=== PATIENT | male | born 1940 | race Caucasian/White ===

== ENCOUNTER 2017-03-12 15:19 | Emergency (ER) | payer MEDICARE ==
[~2017-03-12] VITALS: Ht 180.3 cm; Wt 104.0 kg
[~2017-03-12 15:19] MED LIST: ASPIRIN81 MG PO; CELEBREX200 MG OR; CENTRU2 PO; CIPROFLOXACN500 MG PO; COUMADIN2.5 MG PO; COUMADIN5 MG OR; CRESTOR5 MG OR; DIOVAN HC1 OR; DIOVAN HCT160 MG/25 OR; DIOVAN160 MG PO; JANUMET1 TAB PO; MELATONIN5 MG PO; METFORMIN500 MG OR; METOPROL TAR100 MG PO; METOPROLOL50 MG OR; NEXIUM40 M1 OR; SEA-OMEGA500 MG PO; TRICOR145 MG OR; TRICOR145 MG PO; VERAPAMIL360 MG OR; WARFARIN5 MG PO; XARELTO15 MG PO; ZANTAC 150 PO
[2017-03-12] MEDS ORDERED: OMEPRAZOLE10 MG PO (15:54)
[2017-03-12] MEDS ORDERED: METFORMIN500 MG PO (15:55)
[2017-03-12] MEDS ORDERED: FUROSEMIDE20 MG PO (15:56)
[2017-03-12] MEDS ORDERED: AMLODIPINE5 MG PO (15:56)
[2017-03-12] MEDS ORDERED: KEFLEX500 MG PO (16:12)
[2017-03-12 16:20] VITALS: BP 124/83
[2017-03-12] MEDS ORDERED: XARELTO20 MG PO (16:26)
[2017-03-12] MEDS ORDERED: LEVEMIR FL100 UNIT/M SC (16:28)
[2017-03-12] MEDS ORDERED: PRAVASTATIN SOD20 MG PO (16:28)
[2017-03-12] MEDS ORDERED: DIOVAN HC2 PO (16:28)
[2017-03-12] MEDS ORDERED: FENOFIBRATE145 MG PO (16:29)
[2017-03-12] MEDS ORDERED: PRILOSEC20 MG PO (16:30)
[2017-03-12] MEDS ORDERED: MULTI VIT PO (16:31)
[2017-03-12] MEDS ORDERED: FISH OIL1000 MG PO (16:31)
== END 2017-03-12 16:20 | disposition home or self-care (01) ==
LOC: ED 15:19
DX: S80.862A Insect bite (nonvenomous), left lower leg, initial encounter (principal); S80.861A Insect bite (nonvenomous), right lower leg, initial encounter; I48.91 Unspecified atrial fibrillation; I10 Essential (primary) hypertension; M19.90 Unspecified osteoarthritis, unspecified site; E11.9 Type 2 diabetes mellitus without complications; Y93.89 Activity, other specified; Y92.009 Unspecified place in unspecified non-institutional (private) residence as the place of occurrence of the external cause; W57.XXXA Bitten or stung by nonvenomous insect and other nonvenomous arthropods, initial encounter; Z86.73 Personal history of transient ischemic attack (TIA), and cerebral infarction without residual deficits

== ENCOUNTER → 2018-08-10 | Outpatient (REF) | payer MEDICARE ==
[~2018-08-10] MED LIST changes: +AMLODIPINE5 MG PO; +DIOVAN HC2 PO; +FENOFIBRATE145 MG PO; +FISH OIL1000 MG PO; +FUROSEMIDE20 MG PO; +KEFLEX500 MG PO; +LEVEMIR FL100 UNIT/M SC; +METFORMIN500 MG PO; +MULTI VIT PO; +OMEPRAZOLE10 MG PO; +PRAVASTATIN SOD20 MG PO; +PRILOSEC20 MG PO; +XARELTO20 MG PO
[2018-08-10 08:11] LABS: HEMATOCRIT 47.7 % (39.0-50.0); HEMOGLOBIN 15.9 g/dl (14.0-18.0); MEAN CORPUSCULAR HGB CONC 33.3 g/L CALC (32.0-36.0); RED BLOOD COUNT 4.97 mill/uL (4.70-6.10); RED CELL DISTRI WIDTH 13.8 % (11.5-15.5)
[2018-08-10 08:34] LABS: ALBUMIN 4.3 g/dL (3.2-5.0); ALKALINE PHOSPHATASE 40 u/l (38-126); ANION GAP 16 (6-22 (CALC)); BILIRUBIN, TOTAL 0.8 mg/dL (0.0-1.4); BUN 23 mg/dL (8-23); BUN/CREATININE RATIO 19 (12-20 (CALC)); CALCULATED LDLCHOLESTEROL 76 mg/dL (62-129 (CALC)); CARBON DIOXIDE 27 mmol/l (22-30); CHLORIDE 103 mmol/l (95-108); CHOLESTEROL HDL RATIO 4.5 (<4.4 (CALC)); CREATININE 1.2 mg/dL (0.7-1.3); GFR 59 ML/MIN (>=60 (CALC)); GFR FOR AFR.AMER. > 60 ML/MIN (>=60 (CALC)); HDL CHOLESTEROL 30 mg/dL (>=40); POTASSIUM 3.5 mmol/l (3.5-5.1); SGOT/AST 34 u/l (19-48); SODIUM 143 mmol/l (137-146); TOTAL CHOLESTEROL 134 mg/dl (0-199); TOTAL TRIGLYCERIDES 139 mg/dl (30-149); VLDL CHOLESTROL 28 mg/dl (0-38 (CALC))
== END | disposition home or self-care (01) ==
LOC: LAB 07:13
PROVIDERS: ATTEND Nurse Practitioner
DX: E11.319 Type 2 diabetes mellitus with unspecified diabetic retinopathy without macular edema (principal); E78.49 Other hyperlipidemia; I10 Essential (primary) hypertension

== ENCOUNTER 2019-08-21 13:26 | Observation (INO) | payer MEDICARE ==
[~2019-08-21] VITALS: Ht 180.3 cm; Wt 109.4 kg
--- NOTE | 2019-08-21 13:27 | NUR ---
PT IMMEDIATELY TO ROOM FOE BEDSIDE TRIAGE VIA WC IN NO DISTRESS
--- NOTE | 2019-08-21 14:06 | NUR ---
PT DOES NOT APPEAR TO BE IN ANY DISTRESS AT THIS TIME
[2019-08-21 14:14] LABS: HEMATOCRIT 45.8 % (39.0-50.0); HEMOGLOBIN 15.3 g/dl (14.0-18.0); IMMATURE GRANULOCYTES 0.3 % (0.0-5.0); MEAN CELL VOLUME 93.9 fL CALC (80.0-100.0); MEAN CORPUSCULAR HGB 31.4 pG CALC (26.0-32.0); MEAN CORPUSCULAR HGB CONC 33.4 g/L CALC (32.0-36.0); NEUT# 11.93 thou/uL (1.82-7.42); RED BLOOD COUNT 4.88 mill/uL (4.70-6.10); RED CELL DISTRI WIDTH 14.7 % (11.5-15.5)
[2019-08-21 14:26] LABS: INTERNATIONAL NORMALIZED RATIO 1.2 RATIO (0.7-1.3); PROTHROMBIN TIME 12.9 SECONDS (9.0-12.5)
[2019-08-21 14:28] LABS: ALBUMIN 4.4 g/dL (3.2-5.0); ALKALINE PHOSPHATASE 58 u/l (38-126); ANION GAP 17 (6-22 (CALC)); BUN 19 mg/dL (8-23); BUN/CREATININE RATIO 21 (12-20 (CALC)); CARBON DIOXIDE 23 mmol/l (22-30); CHLORIDE 103 mmol/l (95-108); CREATININE 0.9 mg/dL (0.7-1.3); GFR > 60 ML/MIN (>=60 (CALC)); GFR FOR AFR.AMER. > 60 ML/MIN (>=60 (CALC)); POTASSIUM 3.9 mmol/l (3.5-5.1); SGOT/AST 33 u/l (19-48); SODIUM 138 mmol/l (137-146); TOTAL PROTEIN 7.6 g/dL (6.3-8.2)
--- NOTE | 2019-08-21 15:57 | NUR ---
2ND LACTIC DRAWN. PT BACK FROM XRAY RESTING ON STRETCHER. DENIES ANY PAIN OR SOB AT THIS TIME
[2019-08-21 16:18] LABS: URINE BILIRUBIN - DIPSTICK NEGATIVE (NEGATIVE); URINE BLOOD DIPSTICK NEGATIVE (NEGATIVE); URINE COLOR YELLOW; URINE GLUCOSE - DIPSTICK NEGATIVE (NEGATIVE); URINE KETONE NEGATIVE (NEGATIVE); URINE LEUK ESTERASE NEGATIVE (NEGATIVE); URINE NITRITE - DIPSTICK NEGATIVE (Negative); URINE PROTEIN - DIPSTICK 100 mg/dL (NEG-TRACE)
[2019-08-21 16:20] LABS: URINE EPITHELIAL CELLS FEW EPI/hpf (0-FEW); URINE MUCUS MANY hpf (NONE-FEW)
--- NOTE | 2019-08-21 17:49 | NUR ---
PT RESTING QUIETLY, ADVISED OF ADMISSION, WAITING ON ROOM AVAILABLE. PT WATCHING TV, NO DISTRESS AT THIS TIME. TALKING AND LAUGHING WITH STAFF
--- NOTE | 2019-08-21 18:40 | NUR ---
PT UP TO BATHROOM, PER W/C, STATES PREFERS TO SIT UP IN W/C INSTEAD OF IN BED. FLUIDS AND ANTIBIOTICS CONTINUE TO INFUSE. PT DENIES ANY SOB AT THIS TIME. WATCHING TV. VSS
--- NOTE | 2019-08-21 19:47 | NUR ---
REPORT GIVEN TO FLOOR, AND PT TAKEN TO FLOOR PER W/C AND TELEMENTRY.
[2019-08-21 19:50] VITALS: BP 151/81
--- NOTE | 2019-08-21 20:00 | NUR ---
PT. ARRIVED TO THE FLOOR VIA STRETCHER ACCOMPANIED @1945. PT. A/A/O AND ORIENTED TO CALL LIGHT, ROOM, AND POC; VERBALIZES UNDERSTANDING. ADMISSION ASSESSMENT COMPLETED. TELEMETRY IN PLACE. DENIES PAIN. LAST BM REPORTED 08/19/19 AND OFFERED TO CALL FOR LAXATIVE AND PT. DECLINES WANTING ONE. PT. REPORTS HE USUALLY WEARS CPAP AT NIGHT, BUT DID NOT BRING HIS FROM HOME; APPLIED O2 FOR NIGHT TIME USE. ENCOURAGED TO CALL FOR ANY NEEDS. CALL LIGHT IS IN REACH.
[2019-08-22] VITALS: BP 140/80
--- NOTE | 2019-08-22 | NUR ---
IV SITE FOUND OUT AND REMOVED WITH CATHETER TIP INTACT. NEW IV STARTED TO RIGHT HAND #22 GAUGE X2 ATTEMPTS.PT. TOLERATED WELL. DENIES FURTHER NEEDS. CALL LIGHT IS IN REACH.
--- NOTE | 2019-08-22 02:52 | NUR ---
RESTING IN BED WITH EYES CLOSED; RESP. EVEN AND UNLABORED. CALL LIGHT IS IN REACH. WILL CONTINUE TO MONITOR.
[2019-08-22 03:40] VITALS: BP 146/92
--- NOTE | 2019-08-22 03:40 | NUR ---
PT. FOUND INCONTINENT OF URINE AND URINE ON FLOOR; ASSISTED PT. TO SHOWER AND LINENS CHANGED. VS OBTAINED. NO DISTRESS NOTED; DENIES NEEDS. CALL LIGHT IS IN REACH. WILL CONTINUE TO MONITOR.
--- NOTE | 2019-08-22 05:37 | NUR ---
PT. DRANK A PRUNE JUICE AND ASSISTED TO THE BATHROOM TO ATTEMPT TO HAVE A BM. PT. INSTRUCTED TO PULL BATHROOM CORD WHEN FINISHED AND VERBALIZES UNDERSTANDING.
[2019-08-22 05:49] LABS: HEMATOCRIT 44.5 % (39.0-50.0); HEMOGLOBIN 14.6 g/dl (14.0-18.0); IMMATURE GRANULOCYTES 0.3 % (0.0-5.0); MEAN CELL VOLUME 95.1 fL CALC (80.0-100.0); MEAN CORPUSCULAR HGB 31.2 pG CALC (26.0-32.0); MEAN CORPUSCULAR HGB CONC 32.8 g/L CALC (32.0-36.0); NEUT# 6.56 thou/uL (1.82-7.42); RED BLOOD COUNT 4.68 mill/uL (4.70-6.10); RED CELL DISTRI WIDTH 14.9 % (11.5-15.5)
[2019-08-22 06:19] LABS: ANION GAP 14 (6-22 (CALC)); BUN 14 mg/dL (8-23); BUN/CREATININE RATIO 19 (12-20 (CALC)); CARBON DIOXIDE 22 mmol/l (22-30); CHLORIDE 105 mmol/l (95-108); CREATININE 0.7 mg/dL (0.7-1.3); GFR > 60 ML/MIN (>=60 (CALC)); GFR FOR AFR.AMER. > 60 ML/MIN (>=60 (CALC)); POTASSIUM 3.4 mmol/l (3.5-5.1); SODIUM 138 mmol/l (137-146)
[2019-08-22 08:02] VITALS: BP 151/96
--- NOTE | 2019-08-22 08:02 | NUR ---
PT SITTING ON THE SIDE OF THE BED EATING BREAKFAST WITH DAUGHTER AT BEDSIDE. A&O X3. NO DISTRESS NOTED. PT STATES THAT HE WANTS TO GO HOME TODAY AND THAT HE IS FEELING A LOT BETTER. ASSISTED PT TO THE BATHROON, STEADY GAIT OBSERVED. ASSISTED PT BACK IN BED. PER PT HE ONLY USES O2 WHEN HE IS LAYING DOWN FLAT BECAUSE HE USES A CPAP MACHINE AT HOME BUT DID NOT BRING IT WITH HIM. ASSESSMENT COMPLETED. DISCUSSED POC. CALL LIGHT IN REACH. CONTINUE TO MONITOR.
--- NOTE | 2019-08-22 10:29 | NUR ---
DR PARHAM AT BEDSIDE DISCUSSING POC
--- NOTE | 2019-08-22 10:30 | NUR ---
PT HAD A LARGE LOOSE BM, PT UNABLE TO CALL FOR ASSISTANCE BEFORE HAVING THE URGE TO GO. ASSISTED PT INTO THE SHOWER. NO OTHER NEEDS AT THIS TIME.
[2019-08-22] MEDS ORDERED: AMOX/K CLAV875 M1 PO (10:39)
[2019-08-22 12:07] VITALS: BP 141/90
--- NOTE | 2019-08-22 12:44 | NUR ---
Discharge instructions given. Patient verbalizes understanding of same. Discharged in stable condition via Ambulatory to Home with family. All belongings sent with pt. IV intact upon removal
[2019-08-23] MEDS ORDERED: LEVEMIR100 UNIT/M SC (19:17)
== END 2019-08-22 12:44 | disposition home or self-care (01) ==
LOC: ED 13:26 → ED-I 17:40 → ED 17:50 → MS2 17:51
PROVIDERS: ADMIT Internal Medicine; ATTEND Internal Medicine
DX: E87.2 Acidosis (principal); R06.03 Acute respiratory distress; J32.9 Chronic sinusitis, unspecified; J40 Bronchitis, not specified as acute or chronic; I48.91 Unspecified atrial fibrillation; I10 Essential (primary) hypertension; E11.9 Type 2 diabetes mellitus without complications; G47.33 Obstructive sleep apnea (adult) (pediatric); Z79.01 Long term (current) use of anticoagulants; Z79.84 Long term (current) use of oral hypoglycemic drugs
CPT/HCPCS: G0378; Q9967

== ENCOUNTER 2019-08-23 17:12 | Inpatient (IN) | payer MEDICARE ==
[~2019-08-23] VITALS: Ht 180.3 cm; Wt 108.9 kg
[~2019-08-23 17:12] MED LIST changes: +AMOX/K CLAV875 M1 PO
--- NOTE | 2019-08-23 17:22 | NUR ---
PT TO ROOM VIA EMS
--- NOTE | 2019-08-23 17:30 | NUR ---
RECTAL TEMP COMPLETED AND IS 104.1 AT THIS TIME. PT LETHARGIC OPENS EYES TO VERBAL STIMULI. PT DENIES ANY PAIN OR SOB AT THIS TIME. RR 24, PT AFIB ON THE MONITOR AT 90-110'S. BILATERAL LS CLEAR WITH CRACKLES TO BILATERAL LOWER LOBES. PT REPORTS FEELING WORSE OF THE PAST SEVERAL DAYS. PT AWARE OF PLAN OF CARE AND WAIT TIME. CALL CORBIN WITHIN REACH.
[2019-08-23 17:42] LABS: URINE BILIRUBIN - DIPSTICK NEGATIVE (NEGATIVE); URINE BLOOD DIPSTICK MODERATE (NEGATIVE); URINE COLOR YELLOW; URINE GLUCOSE - DIPSTICK NEGATIVE (NEGATIVE); URINE KETONE NEGATIVE (NEGATIVE); URINE LEUK ESTERASE NEGATIVE (NEGATIVE); URINE NITRITE - DIPSTICK NEGATIVE (Negative); URINE PROTEIN - DIPSTICK >=300 mg/dL (NEG-TRACE); URINE SPECIFIC GRAVITY 1.025; URINE UROBILINOGEN - DIPSTICK 0.2 E.U./dL (0.2)
--- NOTE | 2019-08-23 17:50 | NUR ---
SON AT BEDSIDE. BOTH UPDATED ON PLAN OF CARE AND WAIT TIME. CALL EMERALD ESPOSITO.
[2019-08-23 17:56] LABS: ALBUMIN 3.9 g/dL (3.2-5.0); ALKALINE PHOSPHATASE 49 u/l (38-126); ANION GAP 13 (6-22 (CALC)); BILIRUBIN, TOTAL 1.1 mg/dL (0.0-1.4); BUN 18 mg/dL (8-23); BUN/CREATININE RATIO 18 (12-20 (CALC)); CARBON DIOXIDE 24 mmol/l (22-30); CHLORIDE 101 mmol/l (95-108); GFR > 60 ML/MIN (>=60 (CALC)); GFR FOR AFR.AMER. > 60 ML/MIN (>=60 (CALC)); LIPASE 64 u/l (23-300); POTASSIUM 3.6 mmol/l (3.5-5.1); SGOT/AST 38 u/l (19-48); SODIUM 134 mmol/l (137-146); TOTAL PROTEIN 6.9 g/dL (6.3-8.2)
[2019-08-23 18:00] LABS: HEMATOCRIT 43.8 % (39.0-50.0); HEMOGLOBIN 14.4 g/dl (14.0-18.0); IMMATURE GRANULOCYTES 0.2 % (0.0-5.0); MEAN CELL VOLUME 94.4 fL CALC (80.0-100.0); MEAN CORPUSCULAR HGB CONC 32.9 g/L CALC (32.0-36.0); NEUT# 9.34 thou/uL (1.82-7.42); RED BLOOD COUNT 4.64 mill/uL (4.70-6.10); RED CELL DISTRI WIDTH 14.9 % (11.5-15.5)
[2019-08-23 18:12] LABS: URINE SQUAMOUS EPITHELIAL CELL FEW EPI/hpf (0-FEW)
[2019-08-23 18:13] LABS: URINE AMORPH SEDIMENT MODERATE hpf (NONE-FER)
--- NOTE | 2019-08-23 18:20 | NUR ---
MD AT BEDSIDE TO DISCUSS RESULTS AND NEED FOR ADMISSION.
--- NOTE | 2019-08-23 19:00 | NUR ---
PT RESTING COMFORTABLY IN STRETCHER AND DENIES ANY NEEDS AT THIS TIME. PT AWARE OF PLAN FOR ADMISSION AND WAIT TIME. [facility].
--- NOTE | 2019-08-23 19:16 | NUR ---
REPORT CALLED TO VINICIUS WATTS TO ICU.
[2019-08-23] MEDS ORDERED: LEVEMIR100 UNIT/M SC (19:17)
--- NOTE | 2019-08-23 19:27 | NUR ---
IVF/ANTIBIOTICS COMPLETED. PT RESTING. PREPARED FOR TRANSPORT. MASK APPLIED. TO FLOOR WITH PORTABLE MONITOR/O2 @ 2 LPM NC/MASK. SON AT BEDSIDE.
[2019-08-23 19:30] VITALS: BP 127/75
--- NOTE | 2019-08-23 19:30 | NUR ---
79 yr old white male admitted as med surg tele overflow to icu5 per stretcher from er. transferred x3 to bed. bed weight obtained. o2 cont per nc. ui ux web developer shows a fib hr 103. #20 lac & rt wrist saline locks. history obtained from pt, er records & old chart as he was d/c'd yesterday from this facility. oriented to room. fall, droplet & contact precautions initiated. son @ bedside.
[2019-08-24 00:01] VITALS: BP 140/80
--- NOTE | 2019-08-24 00:01 | NUR ---
eyes closed. no distress. campus monitor shows a fib hr 106.
--- NOTE | 2019-08-24 04:00 | NUR ---
monitor and storage bin tender shows a fib hr 100.
--- NOTE | 2019-08-24 05:57 | NUR ---
has been incont in bed & on floor x3 this shift.
--- NOTE | 2019-08-24 07:30 | NUR ---
REPORT RECEIVED FROM VINICIUS WATTS. PT RESTING IN BED SUPINE CROOKED AND INCONTINENT OF LARGE AMOUNT OF URINE. PT HAVING DIFFICULY MANIPULATING HIMSELF IN BED TO REACH CALL LIGHT EVEN WHEN IT IS RIGHT NEXT TO HIM. PT ASSITED TO BSC FOR ASSISTED BATH, LINEN CHANGE, AND ORAL CARE. ACCU CHECK 120. ASSESSMENT COMPLETED. PT ALERT AND ORIENTED X 3. DENIES PAIN. RESPIRATIONS EVEN AND UNLABORED ON OXYGEN 2L VIA NC. VSS. LUNGS ARE CLEAR; MILD SOB WITH EXERTION. HEART RATE IRREGULAR. PLAN OF CARE REVIEWED. PT ENCOURAGED TO VERBALIZE CONCERNS. STATES UNDERSTANDING. SAFETY MEAURES IN PLACE. CALL LIGHT WITHIN REACH.
[2019-08-24 08:00] VITALS: BP 121/82
--- NOTE | 2019-08-24 08:21 | NUR ---
PT SITTING UP IN CHAIR FOR BREAKFAST; ATE 75%. WATCHING TV WITH NO REQUESTS OR CONCERNS. ON CONTACT AND DROPLET PRECAUTIONS FOR FLU AND HX OF MRSA. IV SITES APPEAR HEALTHY AND FLUSH. AFIB ON MARKETING PRODUCTION MANAGER WITH HEART RATE 90S-110S.
--- NOTE | 2019-08-24 09:22 | NUR ---
UP TO BSC TO VOID 125 ML OF CLEAR FELIPE URINE WITH SOME INCONTINENCE UPON STANDING. ONE PERSON ASSIST; PT WEAK AND UNSTEADY. RESPOSITIONED INTO BED; SEMI FOWLERS. C/O BEING COLD; TEMP 97.9. PT HAS TREMORS THAT HE REPORTS ARE FROM A PREVIOUS STROKE; UNRELATED TO BEING COLD. SKIN IS HOT AND DRY.
--- NOTE | 2019-08-24 10:15 | NUR ---
DR. FARIAS AT BEDSIDE. DAUGHTER ALSO AT BEDSIDE. ALL AGREE PT TO STAY ANOTHER NIGHT; WITH BEGINNING ALZHEIMERS CAN NOT CARE FOR HIM AT CURRENTLY ACTIVITY LEVEL. PT AND OT ORDERED.
--- NOTE | 2019-08-24 11:26 | NUR ---
SMALL URINARY INCONTINENCE; PT ASSISTED TO BSC; WAS UNABLE TO VOID ANY MORE. NOW SITTING UP IN BEDSIDE CHAIR WITH EYES CLOSED. OXYGEN DECREASED TO 1L; SPO2 95%.
[2019-08-24 12:21] VITALS: BP 154/80
--- NOTE | 2019-08-24 13:35 | NUR ---
PT AT BEDSIDE FOR EVAL.
--- NOTE | 2019-08-24 13:48 | NUR ---
SON AT BEDSIDE; ASSITED PT TO BSC AND BACK TO BED. OXYGEN REMOVED; SPO2 97-98% ON ROOM AIR. NO REQUESTS OR CONCERNS FROM PT. SAFETY MEASURES IN PLACE. CALL LIGHT WITHIN REACH.
[2019-08-24 16:00] VITALS: BP 149/97
--- NOTE | 2019-08-24 16:55 | NUR ---
VISITORS AT BEDSIDE. PT CONTINUES TO DENY PAIN. RESPIRATIONS EVEN AND UNLABORED ON ROOM AIR.
[2019-08-24 19:40] VITALS: BP 136/79
--- NOTE | 2019-08-24 19:40 | NUR ---
awakens easily. denies distress. 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 #20 rt wrist & lac saline locks. refused po fluids. voids mostly incont. fall, contact & droplet precautions cont. requires much physical assist from staff-getting oob or back in bed & straightening self in bed. pt said "i have to think about moving my feet." pt has poor foot movement. feet barely move. pt also said "i'm ready to go home tomorrow" although he doesn't think he needs as much assist as he really does. pt has generalized weakness that he denied. pt said "i'm not weak."
[2019-08-25 00:01] VITALS: BP 118/77
--- NOTE | 2019-08-25 00:01 | NUR ---
laboratory monitor shows a fib hr 92.
[2019-08-25 04:00] VITALS: BP 143/95
--- NOTE | 2019-08-25 04:00 | NUR ---
teleetry monitor shows afib hr 88.
--- NOTE | 2019-08-25 04:30 | NUR ---
up to bsc after incont in bed. asaf well.
--- NOTE | 2019-08-25 07:00 | NUR ---
PT RESTING IN BED, NO SIGNS OF DISTRESS NOTED, RESP EVEN AND UNLABORED. PT ALERT AND ORIENTED X3, DISCUSSED POC, PT STATES HE FEELS BETTER. SKIN INTACT, ASSESSMENT COMPLETED. CALL LIGHT IN REACH,CONTINUE TO MONITOR.
[2019-08-25 08:00] VITALS: BP 109/71
[2019-08-25 12:00] VITALS: BP 122/80
--- NOTE | 2019-08-25 12:09 | NUR ---
PT SITTING ON SIDE OF BED EATING LUNCH, CALL LIGHT IN REACH,CONTINUE TO MONITOR.
[2019-08-25] MEDS ORDERED: TAM75CAP PO (13:41)
--- NOTE | 2019-08-25 14:16 | NUR ---
DISCUSSED DISCHARGE INSTRUCTIONS. PT VERBALIZED UNDERSTANDING. IV SITES REMOVED, CATHETER INTACT. PT DRESSED AWAITING HIS RIDE.
--- NOTE | 2019-08-25 14:31 | NUR ---
Discharge instructions given. Patient verbalizes understanding of same. Discharged in stable condition via Wheelchair to Home with family. All belongings sent with pt.
== END 2019-08-25 14:31 | disposition home or self-care (01) | DRG 153 ==
LOC: ED 17:12 → ED-I 18:12 → ED 18:29 → ICU 18:30
PROVIDERS: Family Medicine; ADMIT Internal Medicine; ATTEND Internal Medicine
DX: J11.1 Influenza due to unidentified influenza virus with other respiratory manifestations (principal); E87.2 Acidosis; I11.0 Hypertensive heart disease with heart failure; I50.9 Heart failure, unspecified; I48.91 Unspecified atrial fibrillation; E11.9 Type 2 diabetes mellitus without complications; N40.0 Benign prostatic hyperplasia without lower urinary tract symptoms; Z79.84 Long term (current) use of oral hypoglycemic drugs; Z86.14 Personal history of Methicillin resistant Staphylococcus aureus infection; Z79.01 Long term (current) use of anticoagulants; R06.02 Shortness of breath; R05 Cough; J32.9 Chronic sinusitis, unspecified; J40 Bronchitis, not specified as acute or chronic; I10 Essential (primary) hypertension; G47.33 Obstructive sleep apnea (adult) (pediatric)
CPT/HCPCS: J0131; J0692; Q9967

== ENCOUNTER 2021-03-26 16:34 | Emergency (ER) | payer MEDICARE ==
[~2021-03-26] VITALS: Ht 180.3 cm; Wt 115.0 kg
[~2021-03-26 16:34] MED LIST changes: +LEVEMIR100 UNIT/M SC; +TAM75CAP PO
[2021-03-26 19:10] VITALS: BP 164/89
== END 2021-03-26 19:10 | disposition home or self-care (01) ==
LOC: ED 16:34
PROC: 0HQ0XZZ Repair Scalp Skin, External Approach (ICD-10-PCS; principal; 2021-03-26)
DX: S01.01XA Laceration without foreign body of scalp, initial encounter (principal); I11.0 Hypertensive heart disease with heart failure; I50.9 Heart failure, unspecified; I48.91 Unspecified atrial fibrillation; E11.9 Type 2 diabetes mellitus without complications; N40.0 Benign prostatic hyperplasia without lower urinary tract symptoms; W22.09XA Striking against other stationary object, initial encounter; Y93.H9 Activity, other involving exterior property and land maintenance, building and construction; Y92.007 Garden or yard of unspecified non-institutional (private) residence as the place of occurrence of the external cause; Z79.4 Long term (current) use of insulin; Z79.84 Long term (current) use of oral hypoglycemic drugs; Z86.14 Personal history of Methicillin resistant Staphylococcus aureus infection; Z79.01 Long term (current) use of anticoagulants

== ENCOUNTER 2021-04-06 11:55 | Emergency (ER) | payer MEDICARE ==
[~2021-04-06] VITALS: Ht 180.3 cm; Wt 100.0 kg
[2021-04-06 13:10] VITALS: BP 180/85
== END 2021-04-06 13:10 | disposition home or self-care (01) ==
LOC: ED 11:55
DX: S01.01XD Laceration without foreign body of scalp, subsequent encounter (principal); X58.XXXD Exposure to other specified factors, subsequent encounter; I11.0 Hypertensive heart disease with heart failure; I50.9 Heart failure, unspecified; E11.9 Type 2 diabetes mellitus without complications; I48.91 Unspecified atrial fibrillation; N40.0 Benign prostatic hyperplasia without lower urinary tract symptoms; G47.30 Sleep apnea, unspecified; Z86.14 Personal history of Methicillin resistant Staphylococcus aureus infection; Z79.4 Long term (current) use of insulin; Z79.84 Long term (current) use of oral hypoglycemic drugs

== ENCOUNTER 2021-04-19 09:15 | Emergency (ER) | payer MEDICARE ==
[~2021-04-19] VITALS: Ht 180.3 cm; Wt 101.0 kg
[2021-04-19 10:04] VITALS: BP 158/92
== END 2021-04-19 10:09 | disposition home or self-care (01) ==
LOC: ED 09:15
DX: S01.01XD Laceration without foreign body of scalp, subsequent encounter (principal); I11.0 Hypertensive heart disease with heart failure; I50.9 Heart failure, unspecified; I48.91 Unspecified atrial fibrillation; E11.9 Type 2 diabetes mellitus without complications; X58.XXXD Exposure to other specified factors, subsequent encounter; Z79.84 Long term (current) use of oral hypoglycemic drugs; Z79.4 Long term (current) use of insulin

== ENCOUNTER 2023-06-24 04:55 | Emergency (ER) | payer MEDICARE ==
[~2023-06-24] VITALS: Ht 180.3 cm; Wt 96.3 kg
[~2023-06-24 04:55] MED LIST changes: +CARTIA XT180 MG; +DONEPEZIL HYDROC5 MG PO; +DOXY-CAPS100 MG PO; +ELIQUIS5 MG PO; +FINASTERIDE1 MG; +FINASTERIDE5 MG PO; +LEVAQUIN750 M1 PO; +LORATADINE10 M1 PO; +POTASSIUM99 MG PO; +PROTONIX40 M2 PO; +SEROQUEL25 MG PO; +ZITHROMAX250 MG PO
[2023-06-24 05:04] VITALS: BP 139/96
[2023-06-24] MEDS ORDERED: METHOCARBAMOL500 MG PO (06:54)
[2023-06-24] MEDS ORDERED: MEDDOSEPAK PO (06:54)
[2023-06-24] MEDS ORDERED: MELOXICAM7.5 MG PO (06:54)
[2023-06-24 08:28] VITALS: BP 139/96
== END 2023-06-24 08:15 | disposition home or self-care (01) ==
LOC: ED 04:55
DX: M54.50 Low back pain, unspecified (principal); E11.9 Type 2 diabetes mellitus without complications; I25.2 Old myocardial infarction; W18.39XA Other fall on same level, initial encounter; Z86.73 Personal history of transient ischemic attack (TIA), and cerebral infarction without residual deficits; Z79.84 Long term (current) use of oral hypoglycemic drugs

== ENCOUNTER 2023-12-23 13:56 | Inpatient (IN) | payer MEDICARE ==
[~2023-12-23] VITALS: Ht 152.4 cm; Wt 89.5 kg
[2023-12-23] VITALS (21 sets, daily range): BP systolic 112–158; BP diastolic 78–107
[~2023-12-23 13:56] MED LIST changes: -AMLODIPINE5 MG PO; +ATIVAN1 M1 PO; -FINASTERIDE1 MG; +FINASTERIDE1 MG PO; +FISH OIL + D3 PO; -FISH OIL1000 MG PO; +LISINOPRIL5 MG PO; +MEDDOSEPAK PO; +MELOXICAM7.5 MG PO; +METHOCARBAMOL500 MG PO; +NORVASC2.5 M1 PO; +QUETIAPINE FUMA25 MG PO; +REXULTI1 MG PO
--- NOTE | 2023-12-23 14:00 | NUR ---
PT TO ROOM 12 VIA EMS. MD AT BEDSIDE.
[2023-12-23] MEDS ORDERED: SODIUM CHLORIDE 0.9% 1,000 ML IV ONE (14:05)
[2023-12-23] MEDS ORDERED: PIPERACILLIN Sodium-Tazobactam 3.375 GM in SODIUM CHLORIDE 0.9% 100 ML IV ONE (14:05)
[2023-12-23] MEDS ORDERED: VANCOMYCIN HCL 1 GM in SODIUM CHLORIDE 0.9% 250 ML IV ONE (14:05)
--- NOTE | 2023-12-23 14:05 | NUR ---
PT HAS TWO PRESSURE WOUNDS NOTED TO COCCYX.
[2023-12-23 14:32] LABS: BASO% 0.4 % (0-3); EOS% 0.6 % (0-8); HEMATOCRIT 43.9 % (39.0-50.0); IMMATURE GRANULOCYTES 0.4 % (0.0-5.0); LYMPH% 9.1 % (15-41); MEAN CELL VOLUME 103.8 fL CALC (80.0-100.0); MEAN CORPUSCULAR HGB 33.1 pG CALC (26.0-32.0); MEAN CORPUSCULAR HGB CONC 31.9 g/dL CAL (32.0-36.0); MONO% 9.3 % (2-13); NEUT# 6.85 thou/uL (1.82-7.42); NEUT% 80.2 % (42-76); RED BLOOD COUNT 4.23 mill/uL (4.70-6.10); RED CELL DISTRI WIDTH 14.9 % (11.5-15.5)
[2023-12-23 14:43] LABS: BILIRUBIN, TOTAL 0.4 mg/dL (0.2-1.3); POTASSIUM 3.9 mmol/l (3.5-5.1); TOTAL PROTEIN 5.9 g/dL (6.3-8.2)
--- NOTE | 2023-12-23 14:48 | NUR ---
PT PLACED ON AIRBORNE PRECAUTIONS.
[2023-12-23] MEDS ORDERED: ACETAMINOPHEN325 MG PO (14:50)
[2023-12-23] MEDS ORDERED: DULCOLAX10 MG RE (14:54)
[2023-12-23 14:56] LABS: URINE BILIRUBIN - DIPSTICK Negative (NEGATIVE); URINE BLOOD DIPSTICK Negative (NEGATIVE); URINE COLOR Yellow; URINE GLUCOSE - DIPSTICK Negative (NEGATIVE); URINE KETONE Negative (NEGATIVE); URINE LEUK ESTERASE Negative (NEGATIVE); URINE NITRITE - DIPSTICK Negative (Negative); URINE PH 5.5 (4.5-8.0); URINE PROTEIN - DIPSTICK 100 mg/dL (NEG-TRACE); URINE SPECIFIC GRAVITY 1.025; URINE UROBILINOGEN - DIPSTICK 0.2 E.U./dL (0.2)
[2023-12-23] MEDS ORDERED: POT CHLORIDE10 ME5 PO (14:56)
[2023-12-23 14:58] LABS: URINE RBC 0-2 RBC/hpf (0-5); URINE WBC 0-2 WBC/hpf (0-5)
[2023-12-23] MEDS ORDERED: SINGULAIR10 MG PO (15:08)
[2023-12-23] MEDS ORDERED: SEROQUEL25 MG PO (15:11)
[2023-12-23] MEDS ORDERED: RIVASTIGMINE T PO (15:13)
--- NOTE | 2023-12-23 15:27 | NUR ---
IV ABXS RUNNING PER ORDER. WILL CONTINUE TO MONITOR.
--- NOTE | 2023-12-23 16:06 | NUR ---
MD NOTIFIED OF HEART RATE FLUCTUATING AND BP A LITTLE ELEVATED. PER MD NOTHING WILL BE ORDERED AT THIS TIME.
[2023-12-23] MEDS ORDERED: ACETAMINOPHEN 650 MG SUP RE PRN (16:10)
[2023-12-23] MEDS ORDERED: SODIUM CHLORIDE 0.9% 1,000 ML IV PRN (16:10)
[2023-12-23] MEDS ORDERED: MAGNESIUM HYDROXIDE 30 ML UDC PO PRN (16:10)
[2023-12-23] MEDS ORDERED: INSULIN LISPRO 100 UNITS/ML ML SC SCH (17:00)
--- NOTE | 2023-12-23 17:06 | NUR ---
ATTEMPTED TO CALL AND GIVE REPORT. PER TIER LIFT OPERATOR, NURSE "SUSAN" WILL CALL BACK IN A "FEW MINUTES."
--- NOTE | 2023-12-23 17:20 | NUR ---
ATTEMPTED TO GIVE REPORT AGAIN. PER INSPECTOR EYEGLASS NURSE STILL IN ROOM ADMINISTERING MEDS. INSPECTOR EYEGLASS NOTIFIED THAT WILL ATTEMPT AGAIN IN 10 MINUTES.
--- NOTE | 2023-12-23 17:36 | NUR ---
REPORT GIVEN TO SUSAN URBANO
--- NOTE | 2023-12-23 17:45 | NUR ---
PATIENT ARRIVED TO THE UNIT VIA STRETCHER ACCOMPAINED BY ER STAFF. PATIENT MOVED TO THE BED, ASSESSMENT COMPLETED (SEE INTERVENTIONS). SAFETY MEASURES IN PLACE INCLUDING BED IN LOW POSITION AND CALL LIGHT NEXT TO R HAND.
[2023-12-23] MEDS ORDERED: PIPERACILLIN Sodium-Tazobactam 3.375 GM in SODIUM CHLORIDE 0.9% 100 ML IV SCH (20:00)
--- NOTE | 2023-12-23 20:00 | NUR ---
PATIENT IS RESPONSIVE TO STERNAL RUB. PATIENT ON O2 NC. PATIENT NO S/S PAIN. PATIENT IS INCONTINENT PATIENT VOIDED. PATIENT IS AFIB ON TELE
[2023-12-23] MEDS ORDERED: CLARIFY DOSE IV SCH (21:00)
[2023-12-23] MEDS ORDERED: ENOXAPARIN SODIUM 40 MG/0.4 ML SYR SC SCH (21:00)
[2023-12-23] MEDS ORDERED: METOPROLOL TARTRATE 5 MG/5 ML VIAL IV ONE (23:05)
[2023-12-24] VITALS (53 sets, daily range): BP systolic 115–174; BP diastolic 82–124
--- NOTE | 2023-12-24 | NUR ---
PATIENT ALERT AND ORIENT TO SELF ONLY. PATIENT HEART RATE FLUCTUATE FROM 108 TO 130, PATIENT INCREASE HEART RATE TO 140 WHEN REPOSITIONED. NOTIFIED HYBRID POWERTRAIN DEVELOPMENT ENGINEER ABOUT ABNORMAL BLOOD PRESSURE AND ELEVATED HEART RATE, HYBRID POWERTRAIN DEVELOPMENT ENGINEER ORDER ONE TIME DOSE OF LOPRESSOR.
--- NOTE | 2023-12-24 02:54 | NUR ---
Patient resting heart rate at 140 patient SBP in 170. EKG done patient in Afib with RVR EVENTS ADMINISTRATIVE ASSISTANT José notified. EVENTS ADMINISTRATIVE ASSISTANT order for patient to transfer ICU and start cardizem drip.
[2023-12-24] MEDS ORDERED: dilTIAZem HCL 50 MG/10 ML SDV IV PRN ×2 (03:20)
[2023-12-24] MEDS ORDERED: DILTIAZEM HCL 125 MG in SODIUM CHLORIDE 0.9% 100 ML IV PRN (03:20)
--- NOTE | 2023-12-24 04:30 | NUR ---
Pt transferred from Med Surg for Afib RVR sustaining in the 130s. BP elevated on arrival to ICU. HR in 120s on arrival. Pt able to follow some simple commands. Able to state name but unable to answer any other questions verbally. Pt on 2 L NC. Cardizem gtts ordered per protocol. No s/s of distress noted. Bed locked in lowest position and call moralez in reach. Will cont to monitor for changes.
[2023-12-24 05:55] LABS: BASO% 0.5 % (0-3); EOS% 0.5 % (0-8); HEMATOCRIT 42.2 % (39.0-50.0); HEMOGLOBIN 13.7 g/dl (14.0-18.0); IMMATURE GRANULOCYTES 0.4 % (0.0-5.0); LYMPH% 13.7 % (15-41); MEAN CELL VOLUME 103.2 fL CALC (80.0-100.0); MEAN CORPUSCULAR HGB 33.5 pG CALC (26.0-32.0); MEAN CORPUSCULAR HGB CONC 32.5 g/dL CAL (32.0-36.0); MONO% 11.1 % (2-13); NEUT# 5.56 thou/uL (1.82-7.42); NEUT% 73.8 % (42-76); RED BLOOD COUNT 4.09 mill/uL (4.70-6.10); RED CELL DISTRI WIDTH 14.7 % (11.5-15.5)
--- NOTE | 2023-12-24 06:00 | NUR ---
Pt resting in bed with eyes closed. No s/s of distress noted. VSS at this time. Remains on Cardizem gtts with improvement in RVR. Pt able to follow simple commands. No other changes from initial assessment. Cont to monitor for changes.
[2023-12-24 06:06] LABS: ALBUMIN 2.5 g/dL (3.2-5.0); BILIRUBIN, TOTAL 0.4 mg/dL (0.2-1.3); POTASSIUM 3.4 mmol/l (3.5-5.1); TOTAL PROTEIN 5.1 g/dL (6.3-8.2)
[2023-12-24] MEDS ORDERED: VANCOMYCIN HCL 1 GM in SODIUM CHLORIDE 0.9% 250 ML IV SCH (08:00)
--- NOTE | 2023-12-24 08:00 | NUR ---
PAIENT LYING IN BED. RESPOSTIONED. ASSESSMENT COMPLETED (SEE INTERVENTIONS). PATIENT ALERT AND WILL SPEAK SPARINGLY. SPEECH CLEAR WHEN SPOKEN. AFIB ON THE MONITOR. SAFETY MEASURES IN PLACE INCLUDING BED IN LOW POSITION AND CALL LIGHT RESTING NEXT TO R ARM. NO APPARENT DISTRESS NOTED. WILL CONTINUE WITH PLAN OF CARE.
[2023-12-24] MEDS ORDERED: PIPERACILLIN Sodium-Tazobactam 4.5 GM in SODIUM CHLORIDE 0.9% 100 ML IV SCH (10:00)
[2023-12-24] MEDS ORDERED: methylPREDNISolone Sod Succ 40 MG/ML SDV IV SCH (10:00)
--- NOTE | 2023-12-24 11:51 | NUR ---
PATIENT REPOSITIONED TO R SIDE. BED BATH AND LINEN CHANGE COMPLETE. 20G RFA PLACED. CONROLLED AFIB ON THE MONITOR. WILL CONTINUE TO MONITOR.
[2023-12-24] MEDS ORDERED: INSULIN LISPRO 100 UNITS/ML ML SC SCH ×2 (12:00→21:00)
--- NOTE | 2023-12-24 12:28 | NUR ---
16F MORAES PLACED WITHOUT INCIDENT. CLEAR, YELLOW URINE NOTED.
--- NOTE | 2023-12-24 14:19 | NUR ---
PATIENT APPEARS TO BE RESTING WITH EYES CLOSED. WILL CONTINUE WITH PLAN OF CARE.
--- NOTE | 2023-12-24 16:00 | NUR ---
PATIENT APPEARS TO BE RESTING WITH EYES CLOSED. NO APPARENT DISTRES NOTED. WILL CONTINUE WITH PLN OF CARE.
[2023-12-24] MEDS ORDERED: LISINOPRIL 5 MG/TAB PO SCH (16:46)
[2023-12-24] MEDS ORDERED: amLODIPine BESYLATE 2.5 MG/TAB PO SCH (16:47)
--- NOTE | 2023-12-24 17:45 | NUR ---
PATIENT PLACED IN HIGH FOWL'S POSITION FOR DINNER. WAS ABLE TO SWALLOW TWO SMALL PILLS WITH PUDDING. AFIB ON THE MONITOR. BP ELEVATED, BUT GIVEN LISINOPRIL AND AMLODIPINE PO. NO OTHER CONCERNS AT THIS TIME. WILL CONTINUE TO MONITOR HR/BP.
--- NOTE | 2023-12-24 19:30 | NUR ---
NOTIFIED SANCHEZ MERRILL THAT THE PATIENT'S BLOOD GLUCOSE IS CURRENTLY 324. SANCHEZ WILL ADJUST INSULIN ORDERS TO BE ADMINISTERED ONCE VERIFIED BY PHARMACY.
[2023-12-24] MEDS ORDERED: DEXTROSE 250 ML IV PRN (19:45)
--- NOTE | 2023-12-24 20:00 | NUR ---
PATIENT LAYING IN BED HOB 30 DEGREES. PATIENT IS NON-VERBAL, FOLLOWS SIMPLE COMMANDS BUT IS UNABLE TO ANSWER ANY YES/NO QUESTIONS. PATIENT REPOSITIONED, LINENS AND PAD CLEAN AND DRY.
--- NOTE | 2023-12-24 20:30 | NUR ---
PATIENT TOLERATED DRINKING WATER WITHOUT INCIDENT. ADMISTERED PATIENT'S LOPRESSOR IN PUDDING, PATIENT SWALLOWED OK BUT HAD A DELAYED NON-PRODUCTIVE COUGH. WILL KEEP PATIENT NPO FOR NOW AND REPORT TO THE NEXT SHIFT. PATIENT IS ORDERED TO HAVE A SPEECH THERAPY CONSULT 12/25/23.
[2023-12-24] MEDS ORDERED: METOPROLOL TARTRATE 50 MG/TAB PO SCH (21:00)
--- NOTE | 2023-12-24 22:00 | NUR ---
PATIENT BATHED, TURNED AND LINENS CHANGED. PATIENT HAS AN INTERMITTENT NON-PRODUCTIVE COUGH. PREVALON BOOTS AND RHIANNA HOSES ON.
[2023-12-25] VITALS (39 sets, daily range): BP systolic 111–176; BP diastolic 70–114
--- NOTE | 2023-12-25 00:03 | NUR ---
PATIENT RESTING IN BED WITH EYES CLOSED. CONTINUES TO TRACK AND ALERT TO VOICE. MORAES DRAINING CLEAR YELLOW URINE AND NO BM AT THIS TIME. REPOSITIONED AND UPPER EXTREMITIES STILL ELEVATED USING PILLOWS.
--- NOTE | 2023-12-25 01:57 | NUR ---
PATIENT RESTING IN BED WITH EYES OPEN. PATIENT HAD A BM, CLEANED AND MEPILEX CHANGED. BED IN LOWEST POSITION AND WHEELS LOCKED. NO CHANGE SINCE INITIAL ASSESSMENT.
--- NOTE | 2023-12-25 04:00 | NUR ---
PATIENT RESTING IN BED ALERT TO VOICE. NO CHANGE FROM INIIAL ASSESSMENT. VITAL SIGNS STABLE. REPOSITIONED AND ELEVATED EXTREMITIES WITH PILLOWS.
--- NOTE | 2023-12-25 06:00 | NUR ---
PATIENT RESTING IN BED WITH EYES CLOSED. CARDIZEM REMAINS RUNNING AT 5MG/HR AND NORMAL SALINE AT 100ML/HR.
[2023-12-25 06:07] LABS: BASO% 0.1 % (0-3); HEMATOCRIT 41.6 % (39.0-50.0); HEMOGLOBIN 13.6 g/dl (14.0-18.0); IMMATURE GRANULOCYTES 0.3 % (0.0-5.0); LYMPH% 8.2 % (15-41); MEAN CELL VOLUME 101.5 fL CALC (80.0-100.0); MEAN CORPUSCULAR HGB 33.2 pG CALC (26.0-32.0); MEAN CORPUSCULAR HGB CONC 32.7 g/dL CAL (32.0-36.0); MONO% 3.4 % (2-13); NEUT# 5.91 thou/uL (1.82-7.42); RED BLOOD COUNT 4.1 mill/uL (4.70-6.10); RED CELL DISTRI WIDTH 13.9 % (11.5-15.5)
[2023-12-25 06:36] LABS: ALBUMIN 2.6 g/dL (3.2-5.0); BILIRUBIN, TOTAL 0.4 mg/dL (0.2-1.3); CREATININE 0.8 mg/dL (0.7-1.3); POTASSIUM 3.2 mmol/l (3.5-5.1); TOTAL PROTEIN 5.3 g/dL (6.3-8.2)
--- NOTE | 2023-12-25 08:45 | NUR ---
patient lying in bed awake. will track movement with eyes. patient being non-verbal at this time. patient remains in afib with a rate of 106. breath sounds diminished. but even and unlabored will continue to monitor
[2023-12-25] MEDS ORDERED: POTASSIUM CHLORIDE 20 MEQ/PKT POWDER PO SCH (09:00)
[2023-12-25] MEDS ORDERED: LABETALOL HCL 20 MG/ 4 ML CARTRG IV PRN (10:05)
[2023-12-25] MEDS ORDERED: POTASSIUM CHLORIDE 20MEQ 100 ML IV SCH (10:30)
[2023-12-25] MEDS ORDERED: methylPREDNISolone Sod Succ 40 MG/ML SDV IV SCH (11:30)
[2023-12-25] MEDS ORDERED: INSULIN LISPRO 100 UNITS/ML ML SC SCH (12:00)
--- NOTE | 2023-12-25 13:30 | NUR ---
S: NINO REEVES is a 83 M who presents with pneumonia and covid 19. He has a history of diabetes, advanced dementia, Coronary artery disease, myocardial infarction, cerebrovascular accident, obstructive sleep apnea and Hepatitis B. All medications in patient's chart were reviewed. O: VS: BP 163/97 mmHg, P 102 beats/min, RR 22 breaths/min, T 99.1 F WBC: 7.5 thou/uL W 89.5 kg, HT 180.3 cm , Scr= 1.0 ,CrCl= 67.8 ml/min A: preliminary Blood culture shows no growth after 24 hours P: Patient is on Zosyn 4.5 g IV Q6H . Vancomycin ordered for pharmacy to dose. Start Vancomycin 1g IV Q12H. Vancomycin trough is drawn before the 4th dose on 12/24 at 1930. Vancomycin goal trough is between 15-20 mcg/ml. Pharmacy will follow and or advise on antibiotics use as needed.
--- NOTE | 2023-12-25 14:57 | NUR ---
patient remains awake but non-verbal. breath sounds diminished and breathing even and unlabored. patient remiains in afib with a rate of 120. IV cardizem titrated up to 7.5. patient repositioned. Will continue to monitor
--- NOTE | 2023-12-25 16:25 | NUR ---
sodium chloride 0.9% hung running at 100ml hour. bag unable to scan pharmacy notified. patient laying in bed repositioned. still remains non-verbal. breath sounds diminished. breathing even and unlabored will continue to monitor. patient remains afib with a rate of 115. cardizem titrated
--- NOTE | 2023-12-25 17:45 | NUR ---
PHONE CALL MADE TO ATTENDING MD PATIENT SUSTAINING 120 HR DESPITE CARDIZEM DRI[ BEING AT 15ML/HR. BLOOD PRESSURE 150/105. VERBAL ORDERS RECEIVED TO START AMIODARONE PROTOCOL. PATIENT REMAINS NON-VERBAL RESPIRATIONS EVEN AND UNLABORED WITH DIMINISHED BREATH SOUNDS. PATIENTS BLOOD GLUCOSE 19. WILL CONTINUE TO MONITOR
[2023-12-25] MEDS ORDERED: amioDARONE HCl 150 MG/3 ML SDV IV ONE ×2 (17:57→17:59)
[2023-12-25] MEDS ORDERED: DEXTROSE 5% 100 ML IV ONE (17:58)
[2023-12-25] MEDS ORDERED: SODIUM CHLORIDE 250 ML IV ONE (17:59)
[2023-12-25] MEDS ORDERED: amioDARONE HCl 450 MG in SODIUM CHLORIDE 250 ML IV PRN (18:05)
--- NOTE | 2023-12-25 20:00 | NUR ---
pt assessed , moved ot an airmattress with 4 helpers, turned cleaned new sheets partial bath mouthcare da silva care. ivf at 100, ssessed. call moralez within reach , nonverbal
[2023-12-25] MEDS ORDERED: SODIUM CHLORIDE 0.9% 250 ML IV ONE (20:28)
--- NOTE | 2023-12-25 22:00 | NUR ---
pt repositioned , pt resting comfortably, opens eyes and drifts back off asleep amio gtt going . IVF bx, labetolol given with effect. pt claned for stool earlier . pt cheked clan at this time . pt NPO per MD order. pt not able to follow commands . call moralez within reach .
[2023-12-26] VITALS (34 sets, daily range): BP systolic 111–177; BP diastolic 72–134
--- NOTE | 2023-12-26 | NUR ---
pt assessed repositoned , BS checked 182 and covered. pt resting comfortably ,call moralez withn reach , all monitors and alarms on .
--- NOTE | 2023-12-26 02:00 | NUR ---
, pt turned , heel protectors on , stormy hose on . IVF at 100cc HR of NS, amio gtt, afib , fole drianing adequate clear yellow. . pt non verbal. kept NPO. all monitors on .
[2023-12-26] MEDS ORDERED: hydrALAZINE HCL 20 MG/ML VIAL(1 ML) ONE (04:00)
--- NOTE | 2023-12-26 04:00 | NUR ---
spoke with DICK Pedraza about pts BP levated , review of labetolol and NPO status , hydralazine ordr obtained and given with result of BP.
[2023-12-26 05:37] LABS: BASO% 0.1 % (0-3); HEMATOCRIT 42.4 % (39.0-50.0); HEMOGLOBIN 13.7 g/dl (14.0-18.0); IMMATURE GRANULOCYTES 1.1 % (0.0-5.0); MEAN CORPUSCULAR HGB 32.6 pG CALC (26.0-32.0); MEAN CORPUSCULAR HGB CONC 32.3 g/dL CAL (32.0-36.0); MONO% 3.3 % (2-13); NEUT# 7.76 thou/uL (1.82-7.42); NEUT% 87.5 % (42-76); RED BLOOD COUNT 4.2 mill/uL (4.70-6.10); RED CELL DISTRI WIDTH 13.9 % (11.5-15.5)
[2023-12-26 05:48] LABS: ALBUMIN 2.6 g/dL (3.2-5.0); BILIRUBIN, TOTAL 0.5 mg/dL (0.2-1.3); CREATININE 0.9 mg/dL (0.7-1.3); MAGNESIUM 1.9 mg/dL (1.6-2.3); POTASSIUM 2.6 mmol/l (3.5-5.1); TOTAL PROTEIN 5.3 g/dL (6.3-8.2)
[2023-12-26] MEDS ORDERED: POTASSIUM CHLORIDE 20 MEQ/TAB PO ONE (06:00)
[2023-12-26] MEDS ORDERED: POTASSIUM CHLORIDE 20MEQ 100 ML IV SCH ×2 (06:00→06:30)
--- NOTE | 2023-12-26 06:00 | NUR ---
pt assessed and trned , checked for ncontinenece , da silva output 800 for shift . afib rate cntrolled HR 92 , BP 138/88 afebriel axiallary pt does not follow commands to open mouth for oral temp . pt kpt NPO , nonverbal pt , pt will look at RN and track loosly . pt does not move arms of legs edema noted. all moniotrs on , call moralez within reach. BS checked .
[2023-12-26] MEDS ORDERED: hydrALAZINE HCL 20 MG/ML VIAL(1 ML) IV PRN (06:30)
--- NOTE | 2023-12-26 07:53 | NUR ---
REPORT RECEIVED FROM NIGHT RN. PT LYING IN BED. PT YELLING FOR HELP, BUT ONCE IN THE ROOM PT DOES NOT COMMUNICATE ANY OTHER NEEDS. PT REASSURED THAT EVERYTHING IS OKAY AND HE IS NOT ALONE. PT EXHIBITING ANXIETY AND ONLY MILDLY RELIEVED WHEN STAFF IS IN THE ROOM. PT REMAINS AFIB RVR; RATE INCREASED WHEN PT CRYING OUT FOR HELP. AMIODARONE GTT INFUSING PER ORDERS. LUNGS DIMINISHED; PT IS ON 2LNC. NO COUGH NOTED. MOUTH CARE PROVIDED. BOWEL SOUNDS ACTIVE. ABDOMEN DISTENDED/SOFT. PULSES STRONG UPPER EXTREMETIES, WEAK LOWER. SKIN W/D; MULTIPLE WOUNDS/ABRASIONS. REPOSITIONING PT AT LEAST Q2H. PT REPOSITIONED AT THIS TIME FOR COMFORT. AFEBRILE. MORAES CATHETER IN PLACE. VSS. DR. MONTE NOTIFIED OF PT ANXIETY LEVEL.
[2023-12-26] MEDS ORDERED: LORazepam 2 MG/ML IV PRN (08:25)
--- NOTE | 2023-12-26 09:00 | NUR ---
DR. HERNÁNDEZ AT BEDSIDE TO ASSESS PT. PT GIVEN PRN ATIVAN FOR ANXIETY AND REPOSITIONED.
--- NOTE | 2023-12-26 10:30 | NUR ---
PT TOLERATING AMIODARONE WELL. PT SLEEPING. REPOSITIONED. REMAINS AFIB. VSS.
--- NOTE | 2023-12-26 11:46 | NUR ---
NO CHANGES TO PT STATUS. PT STILL ASLEEP. VSS.
--- NOTE | 2023-12-26 13:00 | NUR ---
TELE-CARDIOLOGY CONSULT COMPLETED WITH DR. LALA. PT REMAINS IN AFIB RVR. ORDERS RECEIVED TO START PT ON IV METOPROLOL.
[2023-12-26] MEDS ORDERED: METOPROLOL TARTRATE 5 MG/5 ML VIAL IV SCH (14:00)
--- NOTE | 2023-12-26 14:30 | NUR ---
PT AWAKE. SOME ANXIETY NOTED BUT PT REASSURED. PT REPOSITIONED AFTER BEING CLEANED FROM SMALL LIQUID BM. REMAINS AFIB RVR; AMIODARONE GTT INFUSING PER ORDERS.
[2023-12-26] MEDS ORDERED: cefTRIAXone SODIUM 2 GM in SODIUM CHLORIDE 0.9% 100 ML IV SCH (16:00)
--- NOTE | 2023-12-26 16:00 | NUR ---
PT MEDICATED FOR ANXIETY PER AUG. ANXIETY APPEARS TO BE RESOLVED AT THIS TIME. PT STILL AWAKE BUT DOES NOT APPEAR TO BE IN ANY DISTRESS. VERBAL ORDER FROM DR. MONTE TO EXTEND AMIODARONE INFUSION THROUGHOUT THE NIGHT, TO BE REASSESSED TOMORROW BY MD. PT REMAINS AFIB, RATE RANGING FROM HIGH 90'S TO 130'S. OTHER VSS.
[2023-12-26] MEDS ORDERED: DOXYCYCLINE HYCLATE 100 MG in SODIUM CHLORIDE 0.9% 100 ML IV SCH (19:00)
--- NOTE | 2023-12-26 20:00 | NUR ---
pt assessed , cleaned bath , small liquid light brown BM , new mepilex on sacrum pt turned , on air mattress. face and mouth cleaned , on amiodarone gtt. IVF at 100cc/hr NS. medicated with prn for BP. call negin within reach. pt makes no attemot to use alarm due to dementdisease process. on room air sats mid to high 90s. all monitors and alarms on ,
--- NOTE | 2023-12-26 22:00 | NUR ---
pt rounded on Q1 hr , medicated fr anxiety with relief, resting comfortably, stormy hose and bunny boots on ,, new linens sheets pillow cases. lights dimmed to pomote sleep.
[2023-12-27] VITALS (38 sets, daily range): BP systolic 102–167; BP diastolic 73–124
[2023-12-27] MEDS ORDERED: METOPROLOL TARTRATE 5 MG/5 ML VIAL IV SCH
--- NOTE | 2023-12-27 | NUR ---
pt GLU and medicated with 0000 meds , amiodaron at 0.5 fluids at 100cc/hr , pt resting comfortably, turned on air mattress. no BM noted when examined. all monitors on , all safety measures in place. no change in assessment .
--- NOTE | 2023-12-27 02:00 | NUR ---
pt rounded on turned, amio at 0.5 NS at 100cc/hr, assessment unchanged. pt resting comfortably, da silva drainaing. on monitor
--- NOTE | 2023-12-27 03:36 | NUR ---
pt medicated with labetolol for bp 159/115 HR was irregular 110-122
--- NOTE | 2023-12-27 04:08 | NUR ---
having issues with pts BP, 165/121 repeat bp , will medicate w hydralazine , pt sleeping .
--- NOTE | 2023-12-27 05:12 | NUR ---
pt rounded on at 0400 and 0430 and nopw at 0510 pt screaming help , asked pt what he needed , pt shaking and screaming will not answer questions. will not follow commands. repositioned face wiped wioth warm water , mouthcare done . medicated for aggitation with ativan 1mg IV per order.
[2023-12-27 05:45] LABS: HEMATOCRIT 43.9 % (39.0-50.0); HEMOGLOBIN 14.3 g/dl (14.0-18.0); IMMATURE GRANULOCYTES 0.6 % (0.0-5.0); LYMPH% 5.5 % (15-41); MEAN CELL VOLUME 101.6 fL CALC (80.0-100.0); MEAN CORPUSCULAR HGB 33.1 pG CALC (26.0-32.0); MEAN CORPUSCULAR HGB CONC 32.6 g/dL CAL (32.0-36.0); MONO% 2.9 % (2-13); NEUT# 10.17 thou/uL (1.82-7.42); RED BLOOD COUNT 4.32 mill/uL (4.70-6.10)
[2023-12-27 06:08] LABS: ALBUMIN 2.7 g/dL (3.2-5.0); BILIRUBIN, TOTAL 0.5 mg/dL (0.2-1.3); CREATININE 0.8 mg/dL (0.7-1.3); POTASSIUM 2.9 mmol/l (3.5-5.1); TOTAL PROTEIN 5.4 g/dL (6.3-8.2)
[2023-12-27] MEDS ORDERED: POTASSIUM CHLORIDE 20MEQ 100 ML IV SCH (07:00)
--- NOTE | 2023-12-27 07:15 | NUR ---
pt resting in bed with eyes closed; no acute distress noted; arousable to voice; pt able to say "good morning" with much prompting; alert name; no s/s/ facial grimaces of pain noted; resp even and unlabored; lungs clear/ diminished; skin color wnl; ra; hr irreg; wk pedal pulses; edema noted to bue; afib on monitor; abd soft with bs present; no bm noted per senior writer; da silva to gravity draining clear yellow urine; cath strap intact; #20 to rfa patent with amiodarone gtt at 0.5mg/min; SL midline intact to stalin; ivf infusing without complication; no redness or edema noted at site; repositioned; air mattress; heel boots intact; wound noted to coccys with drsg cdi; scabs noted generalized; will continue to monitor closely
--- NOTE | 2023-12-27 08:02 | NUR ---
awake in bed; afib 130s on monitor; iv intact and patent; ra; will continue to monitor closely
--- NOTE | 2023-12-27 08:30 | NUR ---
Dr Baeza present at bedside to assess pt and discuss plan of care
--- NOTE | 2023-12-27 09:59 | NUR ---
awake in bed; repositioned supine/ high fowlers; CONTROL SUPERVISOR present at bedside; afib/ tachy on monitor; Dr Baeza aware of HR; da silva to gravity; ra; call light within reach; will continue to monitor
--- NOTE | 2023-12-27 10:03 | NUR ---
cardiology tele health consult completed
--- NOTE | 2023-12-27 10:31 | NUR ---
SPEECH NOTE: The patient had clinical bedside swallow evaluation. BROACH GRINDER informed that MBS is not an option secondary to patient's COVID status per d/w nursing. The attending nurse was present to reposition the patient upright. Cardiology televisit also took place during this time. The patient had no family present. The patient was on room air. The patient had heart rate 119, 02 sat 98%, resp rate 16, BP 142/92. The medical chart was checked and the following information is noted: 12-23-23 CXR per MD reports patient was found unresponsive and also reports bilateral lower lobe opacities concerning for atelectasis or pneumonia. The MD report from CXR on 12-25-23 indicates lungs are clear bilaterally. Nursing staff reports patient was taking PO intake over the weekend and then developed some clinical signs of aspiration risk and was made NPO. Time with patient today was 945 am to 1020 am. Additional conditions include: advancing Dementia per notes, previous CVA, HTN, hyperlipidemia, DM, atrial fib, SNF patient, AMS, LUPE, NC, Hep B. There are reports of agitation and nurse reports patient receives Ativan. MD note reports possible hospice. Patient remained upright in the bed with the attending nurse in/out of room. All visible lines intact and all precautions maintained. The patient had limited and inconsistent response to single stage auditory based commands in the presence of multimodality cues. The patient had no overt oral asymmetry at the baseline. Orally defensive to gag reflex testing. Oral area tremor-like movement is noted, particularly at the lingual musculature. The patient has dentition. There was no cough, throat clear, or saliva swallow on cue. When he was able to phonate, there was raspy quality and was hypophonic. No wet dysphonia was noted. Breath sounds baseline in area of larynx were clear as per cervical auscultation. The patient was given three tsps of thin liquid. Reduction to labial seal and bolus stripping motion from tsp. There was right side anterior oral loss mild. There was palpable swallow weakness and delay perceived throughout as per palpable assessment of the areas of the mandible, hyoid bone, and thyroid cartilage. There was intermittent spontaneous saliva swallow between sips. There was some increase in wet breath sounds in area of larynx. Patient had audible loss of liquids to the throat in 3rd trial and there was strong reflexive cough before and after the swallow. This was contingent on bolus intake. No oral bolus retention. The patient was given 3 tsps of mildly thick/nectar thick liquid and puree (apple sauce) 8 tsps, small cup sips of mildly thick/nectar thick liquid 8 cup sips. With puree and mildly thick, there was minimal anterior oral loss right side with liquid, no cough, no choke, no throat clear, no wet voice, no throat clearing, no increased work of breathing. No clinical, behavioral, audible, overt signs of aspiration. Elicited phonation was raspy and dry. Breath sounds remained clear in area of larynx. Continued swallow weakness and delay perceived as per palpable assessment of the areas of the mandible, hyoid bone, and thyroid cartilage. Cued and spontaneous saliva swallows between bolus trials was inconsistent with verbal commands, dry tsp stim, and gentle tactile stim to areas of mandible, hyoid bone, and thyroid cartilage. No oral retention with puree and mildly thick/nectar thick liquid. If FEES exam were available, this could help correlate clinical findings. However, it is not know if family or patient would want more aggressive objective testing. Additionally, with the history of agitation, he may not be compliant for that type of exam. Inconsistent response to oral motor ROM based commands. Based on clinical swallow assessment the following is suggested at this point in time: 1. Puree diet and mildly thick/nectar thick liquids, as tolerated. 2. Avoid use of straws. Patient should be fed slowly in small bites/sips 3. Alternating food and liquid is suggested. Verbal cues for dry saliva swallows between bites and sips is suggested. 4. Check for oral pooling. 5. Crush PO medication and provide with apple sauce if possible. 6. Feed only when awake and alert. 7. Patient should be fed by nursing, fully upright in bed as close to 90 degree angle as possible. 8. Patient should maintain upright position in bed for 1 hour after meal. 9. Hold oral intake if any signs of aspiration develop and/or if there is worsening respiratory status. 10. Allow extra time between bites and sips and allow extra time for meals. 11. Maintain good oral hygiene. Monitor temperature, lung, dietary, weight status. 12. Follow up portable chest x-ray should be considered. 13. Aspiration and reflux precautions Clinical swallow exam completed. Objective testing would be needed to fully determine aspiration risk. Speech department follow up would be beneficial to ensure tolerance of PO intake. Goal for patient is least restrictive PO diet while maintaining adequate nutrition and hydration without signs of aspiration. There was no overt distress during this visit.
--- NOTE | 2023-12-27 11:13 | NUR ---
shahnaz Mccormick present at bedside; update provided
--- NOTE | 2023-12-27 11:54 | NUR ---
SPEECH NOTE ADDENDUM: Patient could benefit from possible Neurology follow up based on oral-lingual tremor-like movements noted during the visit. There was also fair oral anticipation during PO trials. He did maintain eye opening and wakefulness during the visit. The dietary consistency suggestions were discussed with Power Reactor Supervisor as well.
--- NOTE | 2023-12-27 12:00 | NUR ---
technical publications writer present at bedside; pt toleraring pureed meal; no s.s of aspiration noted; afib on monitor; technical publications writer remains at bedside to feed pt; will continue to monitor
--- NOTE | 2023-12-27 13:50 | NUR ---
Dr Baeza informed of sustained tachycardia/HTN; afib 140s up to 150s on monitor; informed of cardiology recommendations; orders to be placed;
--- NOTE | 2023-12-27 14:13 | NUR ---
awake; only states "Leonid' (name)'" when telegraphic typewriter operator chief ask questions; no apparent distress noted; afib on monitor; iv intact and patent; da silva to gravity; repositioned; will continue to monitor
[2023-12-27] MEDS ORDERED: METOPROLOL TARTRATE 25 MG/TAB PO SCH (15:00)
[2023-12-27] MEDS ORDERED: dilTIAZem HCl EXTENDED RELEASE 120 MG CAP PO SCH (15:00)
--- NOTE | 2023-12-27 16:02 | NUR ---
pt resting in bed with eyes closed; no apparent distress noted; da silva to gravity; afib on monitor; will continue to monitor
[2023-12-27] MEDS ORDERED: dilTIAZem HCL 30 MG/TAB PO SCH (17:00)
--- NOTE | 2023-12-27 18:00 | NUR ---
awake in bed; repositioned, left high fowlers; da silva to gravity; iv intact and patent; afib on monitor; face flushed; temp 99.8; pt appears more drowsy; able to safely eat approx 10 tsp of food/drink;pt slow to receive food in comparison to lunch; meal held for safety;
--- NOTE | 2023-12-27 20:00 | NUR ---
pt examined turned , pt ate an applesauce with pills, pt mdicated for BP SBP > 160, and HR of 117-136 non rate controlled a fib. pt swollowed pills without coughng with applesauce pt given nectar thickened liquids gatoraid and water mixed wth thicket. pt swollowed a hole cup of fluids no issues , da silva care done , face washed , partial bath , mouth cleaned with swab, kit. all onitors on , and monitors , rounding Q1 hr on pt.
[2023-12-27] MEDS ORDERED: APIXABAN BASE 2.5 MG/TAB TAB PO SCH (21:00)
--- NOTE | 2023-12-27 22:00 | NUR ---
pt runded on , assessment unchnaged.
[2023-12-28] VITALS (45 sets, daily range): BP systolic 111–158; BP diastolic 72–115
--- NOTE | 2023-12-28 | NUR ---
pt rounded on and assessed , awake anxious skaing and non verbal, HR 110-130, bp 138/99 all meds and prns given , pt still AFIB tacky and diastolic high . , pt turned temp taken , all needs met , all alarms and monitors on .
--- NOTE | 2023-12-28 02:00 | NUR ---
rounded and turned pt , resting comfortbaly all needs met IVF at 100cc/hr , monitors on .
--- NOTE | 2023-12-28 04:58 | NUR ---
pt HR 145-155 , labetolol given for HR >130..
--- NOTE | 2023-12-28 05:03 | NUR ---
pts HR 133 bp 149/108 monitoring effects of labetolol, previous shifts , it did help approx 10 points on dastolic and HR. this RN is day 3 with this pt.
[2023-12-28 05:26] LABS: ALBUMIN 2.7 g/dL (3.2-5.0); BILIRUBIN, TOTAL 0.3 mg/dL (0.2-1.3); CREATININE 0.8 mg/dL (0.7-1.3); MAGNESIUM 1.9 mg/dL (1.6-2.3); POTASSIUM 3.2 mmol/l (3.5-5.1); TOTAL PROTEIN 5.3 g/dL (6.3-8.2)
[2023-12-28 05:42] LABS: HEMATOCRIT 41.9 % (39.0-50.0); HEMOGLOBIN 13.5 g/dl (14.0-18.0); IMMATURE GRANULOCYTES 0.9 % (0.0-5.0); MEAN CELL VOLUME 101.9 fL CALC (80.0-100.0); MEAN CORPUSCULAR HGB 32.8 pG CALC (26.0-32.0); MEAN CORPUSCULAR HGB CONC 32.2 g/dL CAL (32.0-36.0); MONO% 2.9 % (2-13); NEUT# 10.84 thou/uL (1.82-7.42); NEUT% 92.2 % (42-76); RED BLOOD COUNT 4.11 mill/uL (4.70-6.10); RED CELL DISTRI WIDTH 14.3 % (11.5-15.5)
--- NOTE | 2023-12-28 05:44 | NUR ---
pts BP 158-160/110 hydralazine given with good effect.
--- NOTE | 2023-12-28 08:00 | NUR ---
PATIENT REPOSITIONED TO L SIDE AND HOB ELEVATED TO 45 DEGREES FOR BREAKFAST. PATIENT IS ALERT. RESPONSES RARELY SPEAKS, BUT DID SAY "GOOD MORNING". LUNGS DIMINISHED TO ASCULTATION. BREATHING EVEN AND UNLABORED ON ROOM AIR. STRONG PERIPHERAL PULSES. MORAES PATENT AND FLOWING TO GRAVITY WITH 125 mL OF CLEAR, YELLOW URINE NOTED. AFIB ON THE MONITOR. SAFETY MEASURES IN PLACE INCLUDING BED IN LOW POSITION AND CALL LIGHT NEXT TO R HAND. NO APPARENT DISTRESS NOTED. WILL CONTINUE WITH PLAN OF CARE.
[2023-12-28] MEDS ORDERED: predniSONE 20 MG/TAB PO SCH (09:00)
--- NOTE | 2023-12-28 10:00 | NUR ---
PATIENT RESPOSITIONED TO R SIDE. NO AFIB ON THE MONITOR. NO APPARENT DISTRESS NOTED. WILL CONTINUE WITH PLAN OF CARE.
[2023-12-28] MEDS ORDERED: POTASSIUM CHLORIDE 20MEQ 100 ML IV SCH (11:00)
[2023-12-28] MEDS ORDERED: POTASSIUM CHLORIDE 20 MEQ IV SCH (11:00)
[2023-12-28] MEDS ORDERED: METOPROLOL TARTRATE 25 MG/TAB PO SCH (12:00)
--- NOTE | 2023-12-28 12:00 | NUR ---
PATIENT REPOSITIONED SUPINE. ORAL CARE PROVIDED. ASSESSMENT UNCHANGED. WILL CONTINUE [facility] PLAN OF CARE.
--- NOTE | 2023-12-28 14:00 | NUR ---
PATIENT RESPOSITIONED TO R SIDE. ORAL CARE PROVIDED. ASSESSMENT UNCHANGED. CONTINUE WITH PLAN OF CARE.
--- NOTE | 2023-12-28 16:00 | NUR ---
PATIENT REPOSITIONED TO L SIDE. AFIB ON THE MONITOR. NO APPARENT DISTRESS NOTED. WILL CONTINUE WITH PLAN OF CARE.
--- NOTE | 2023-12-28 18:48 | NUR ---
PATIENT REPOSITIONED SUPINE. PROVIDED DINNER, ATE 75%. CONTROLLED AFIB ON THE MONITOR. WILL CONTINUE WITH PLAN OF CARE.
--- NOTE | 2023-12-28 20:00 | NUR ---
pt assessed , pt fed meds in pudding , swollowed followed with nectar thick drink. pt seemed to do well with that no coughing, pt is non verbal and not answering any questions and not following commands , pt will briefly make eye contact , skin on face flushed. pt pulled up in bed and turned. cardizem and IVF running . abx hung. pt not able to use call moralez due to dementia process. rounding Q1 hr. da silva drainaing da silva care done. face wahed, mouth care done . all monitors done .
--- NOTE | 2023-12-28 21:49 | NUR ---
ativan given for aggitation shaking / with good relief
--- NOTE | 2023-12-28 22:00 | NUR ---
pt resting comfortbaly , turned. all moniotrs on and safety measutes in place.
[2023-12-29] VITALS (24 sets, daily range): BP systolic 122–168; BP diastolic 62–111
--- NOTE | 2023-12-29 | NUR ---
pt bs done and covered, pt lethargic and not awake and will not awaken fully with following of any commands to taek meds or swollow, unsafe. HR controlled on cardizem 5mg/hr, all monitors on .
--- NOTE | 2023-12-29 02:00 | NUR ---
pt rounded on , turned, resting comfortably , da silva draining , ivf 100cc/hr, cardizem at 5mg/hr. all moniotrs on safety checks done.
--- NOTE | 2023-12-29 04:00 | NUR ---
pt assessed , assessment unchanged. pt resting comfortably pt turned. all monitors on.
[2023-12-29 04:58] LABS: HEMATOCRIT 43.3 % (39.0-50.0); HEMOGLOBIN 13.5 g/dl (14.0-18.0); IMMATURE GRANULOCYTES 0.8 % (0.0-5.0); LYMPH% 4.2 % (15-41); MEAN CELL VOLUME 105.9 fL CALC (80.0-100.0); MEAN CORPUSCULAR HGB CONC 31.2 g/dL CAL (32.0-36.0); MONO% 3.3 % (2-13); NEUT# 11.43 thou/uL (1.82-7.42); NEUT% 91.7 % (42-76); RED BLOOD COUNT 4.09 mill/uL (4.70-6.10); RED CELL DISTRI WIDTH 14.3 % (11.5-15.5)
--- NOTE | 2023-12-29 05:09 | NUR ---
pt bathed tuned , new gown and linnens. mouthcare, face washed.
[2023-12-29 05:14] LABS: ALBUMIN 2.7 g/dL (3.2-5.0); CREATININE 0.7 mg/dL (0.7-1.3); POTASSIUM 3.3 mmol/l (3.5-5.1); TOTAL PROTEIN 5.4 g/dL (6.3-8.2)
[2023-12-29 05:26] LABS: BILIRUBIN, TOTAL 0.5 mg/dL (0.2-1.3)
--- NOTE | 2023-12-29 06:43 | NUR ---
OPT FULL HEAD TO TOE BATH DONE, LOTION , NEW LINENS, NEW MEPILEX ON SACRAL AREA, PT HAS SOME FUNGAL LOOKING GROIN , CLEANED BABY POWDER APPLIED , WILL PASS ON , SO NEXT RN CAN ASK MD THIS AM FOR NYSTATIN POWDER. SACRAL SKIN LOOKING BETTER, SMALL AREAS CLOSED HEALED , ONE OPEN AREA RIGHT BUTTOCKS CHEEK APPRIOX 2.5CMX 1.5 CM MEDS GIVEN W PUDDING , AND THICKENED LIQUID.
[2023-12-29] MEDS ORDERED: POTASSIUM CHLORIDE 20 MEQ/TAB PO SCH (08:00)
--- NOTE | 2023-12-29 08:00 | NUR ---
PATIENT REPOSITIONED TO R SIDE. ORAL CARE PROVIDED. ASSESSMENT COMPLETE (SEE INTERVENTIONS). PATIENT ALERT AND SPEAKING MORE AT THIS TIME. STATED HIS NAME IS "NINO" AND "GOOD MORNING". MORAES PATENT AND FLOWING TO GRAVITY WITH 75mL OF YELLOW URINE NOTED. SAFETY MEASURES IN PLACE INCLUDING BED IN LOW POSITION AND CALL LIGHT RESTING NEXT TO R HAND. NO APPARENT DISTRESS NOTED. WILL CONTINUE WITH PLAN OF CARE,
[2023-12-29] MEDS ORDERED: dilTIAZem HCl COATED BEADS 240 MG/CAP PO SCH (09:00)
[2023-12-29] MEDS ORDERED: DEXTROSE 250 ML IV PRN (10:00)
--- NOTE | 2023-12-29 10:00 | NUR ---
ROUNDING COMPLETE. ASSESSMENT UNCHANGED. PATIENT REPOSITIONED AND ORAL CARE PROVIDED. NO APPARENT DISTRESS NOTED. VITAL SIGNS STABLE. WILL CONTINUE WITH PLAN OF CARE.
[2023-12-29] MEDS ORDERED: INSULIN LISPRO 100 UNITS/ML ML SC SCH (11:00)
--- NOTE | 2023-12-29 12:05 | NUR ---
PATIENT REPOSITIONED SUPINE. GLU 163. 75% OF LUNCH EATEN. NO APPARENT DISTRESS NOTED. WILL CONTINUE WITH PLAN OF CARE.
[2023-12-29] MEDS ORDERED: METOPROLOL TARTRATE 25 MG/TAB PO SCH (13:00)
[2023-12-29] MEDS ORDERED: NYSTATIN 1500 MU/BTL TOP SCH (13:00)
--- NOTE | 2023-12-29 14:00 | NUR ---
ROUNDING COMPLETE. ASSESSMENT UNCHANGED. PATIENT REPOSITIONED TO L SIDE. ORAL CARE PROVIDED. WILL CONTINUE WITH PLAN OF CARE.
--- NOTE | 2023-12-29 16:32 | NUR ---
PATIENT REPOSITIONED TO R SIDE. ORAL CARE PROVIDED. ASSESSMENT UNCHANGED. VITAL SIGNS STABLE. WILL CONTINUE WITH PLAN OF CARE.
--- NOTE | 2023-12-29 20:00 | NUR ---
Pt resting in bed. ALert to self only. Not following commands. Did nod head appropriately when asked a simple question. VSS at this time. Remains in A-fib controlled at this time. On Cardizem gtts. No s/s of distress noted. Pt repositioned for comfort. Bed locked in lowest position and call moralez in reach. Guard rails up for safety. Continue hourly rounding for changes.
[2023-12-29] MEDS ORDERED: SODIUM CHLORIDE 0.9% 250 ML IV ONE (22:20)
[2023-12-30] VITALS (29 sets, daily range): BP systolic 117–177; BP diastolic 74–119
--- NOTE | 2023-12-30 | NUR ---
Pt resting in bed with eyes closed. VSS. No s/s of distress noted. No changes from prior assessment. Cont hourly rounding.
--- NOTE | 2023-12-30 02:09 | NUR ---
Pt resting in bed with eyes closed. VSS at this time. Pt repositioned. No changes from previous assessment. Continue hourly rounding and monitor for changes.
[2023-12-30 06:11] LABS: ALBUMIN 2.7 g/dL (3.2-5.0); BILIRUBIN, TOTAL 0.5 mg/dL (0.2-1.3); CREATININE 0.7 mg/dL (0.7-1.3); MAGNESIUM 1.9 mg/dL (1.6-2.3); POTASSIUM 2.9 mmol/l (3.5-5.1); TOTAL PROTEIN 5.3 g/dL (6.3-8.2)
[2023-12-30 06:14] LABS: BASO% 0.1 % (0-3); EOS% 0.1 % (0-8); HEMATOCRIT 41.2 % (39.0-50.0); HEMOGLOBIN 13.5 g/dl (14.0-18.0); IMMATURE GRANULOCYTES 0.7 % (0.0-5.0); LYMPH% 3.5 % (15-41); MEAN CORPUSCULAR HGB 32.8 pG CALC (26.0-32.0); MEAN CORPUSCULAR HGB CONC 32.8 g/dL CAL (32.0-36.0); NEUT# 12.91 thou/uL (1.82-7.42); NEUT% 92.6 % (42-76); RED BLOOD COUNT 4.12 mill/uL (4.70-6.10); RED CELL DISTRI WIDTH 14.1 % (11.5-15.5)
[2023-12-30] MEDS ORDERED: POTASSIUM CHLORIDE 20MEQ 100 ML IV SCH (08:00)
[2023-12-30] MEDS ORDERED: METOPROLOL TARTRATE 50 MG/TAB PO SCH (08:00)
--- NOTE | 2023-12-30 08:00 | NUR ---
PATIENT LYING IN BED. ASSESSMENT COMPLETED (SEE INTERVENTIONS). PATIENT IS ALERT, BUT NOT SPEAKING. AFIB ON THE MONITOR. CARDIZEM INCREASED TO 5 mL/HR. RESPOSITIONED TO R SIDE. ORAL CARE PROVIDED. SAFETY MEASURES IN PLACE INCLUDING BED IN LOW POSITION AND CALL LIGHT RESTING NEXT TO R LEG. NO APPARENT DISTRESS NOTED. WILL CONTINUE WITH PLAN OF CARE.
[2023-12-30] MEDS ORDERED: AMIODARONE 200 MG/TAB PO SCH (09:00)
--- NOTE | 2023-12-30 10:00 | NUR ---
PATIENT REPOSITIONED TO L SIDE. ORAL CARE PROVIDED. NO APPARENT DISTRESS. WILL CONTINUE WITH PLAN OF CARE.
--- NOTE | 2023-12-30 12:00 | NUR ---
PATIENT REPOSITIONED SUPINE. ASSESSMENT UNCHANGED. WILL CONTINUE TO MONITOR HR/BP.
--- NOTE | 2023-12-30 16:00 | NUR ---
PATIENT REPOSITIONED TO L SIDE. ORAL CARE PROVIDED. ASSESSMENT UNCHANGED. WILL CONTINUE WITH PLAN OF CARE.
--- NOTE | 2023-12-30 18:16 | NUR ---
PATIENT REPOSITIONED SUPINE. DOES NOT SEEM INTERESTED TO EATING DINNER AT THIS TIME. AFIB ON THE MONITOR. NO APPARENT DISTRESS NOTED. WILL CONTINUE WITH PLAN OF CARE.
--- NOTE | 2023-12-30 20:00 | NUR ---
pt assesses, very lethargic , Had to wash face and stimmulate alot to get him eto wake up enough to swollow applesauce. pt will not speak or follow commands other than to swollow. pt given meds amd turned. da silva care , nystatin to groin , da silva drainaing clear yellow, cardizem at 10 ,on monitor car operator all safety masures in place.
--- NOTE | 2023-12-30 22:00 | NUR ---
pt rounded on , titrated cardizem. down , turned pt , arms elevated on pillows to promote reduction of edema . feet in bunny boots. all safety meaures in place on monitor afib .
[2023-12-31] VITALS (25 sets, daily range): BP systolic 117–151; BP diastolic 73–101
--- NOTE | 2023-12-31 | NUR ---
assessment unchanged turned
--- NOTE | 2023-12-31 01:45 | NUR ---
pt HR 66-74 afib bp 117/81 turing off cardizem at 5. pt assessment unchanged
--- NOTE | 2023-12-31 02:00 | NUR ---
rounded on pt , pt resting comfortbaly , cardizem has been off HR 71 afib and BP 130/86 no distress. pulse ox 98, pt turned pillow pulled out supine. da silva drainaing. all safety measures in place.
--- NOTE | 2023-12-31 04:00 | NUR ---
pt assessed no change in assessment , pt off cardizem gtt since before 2 am HR 81 BP 137/91 afib, afevrile , bath repositioned. all needs met . pt lethargice , pt normally is sleepy at night per previous assessments. all onitors on , da silva draining , da silva care done .
[2023-12-31 05:40] LABS: EOS% 1.8 % (0-8); HEMATOCRIT 43.5 % (39.0-50.0); HEMOGLOBIN 14.2 g/dl (14.0-18.0); IMMATURE GRANULOCYTES 1.5 % (0.0-5.0); LYMPH% 6.7 % (15-41); MEAN CELL VOLUME 100.7 fL CALC (80.0-100.0); MEAN CORPUSCULAR HGB 32.9 pG CALC (26.0-32.0); MEAN CORPUSCULAR HGB CONC 32.6 g/dL CAL (32.0-36.0); MONO% 4.6 % (2-13); NEUT# 10.81 thou/uL (1.82-7.42); NEUT% 85.4 % (42-76); RED BLOOD COUNT 4.32 mill/uL (4.70-6.10); RED CELL DISTRI WIDTH 14.4 % (11.5-15.5)
[2023-12-31 05:54] LABS: ALBUMIN 2.7 g/dL (3.2-5.0); BILIRUBIN, TOTAL 0.5 mg/dL (0.2-1.3); MAGNESIUM 2.1 mg/dL (1.6-2.3); POTASSIUM 2.9 mmol/l (3.5-5.1); TOTAL PROTEIN 5.4 g/dL (6.3-8.2)
[2023-12-31 05:58] LABS: CREATININE 0.8 mg/dL (0.7-1.3)
--- NOTE | 2023-12-31 06:45 | NUR ---
pt bathed new mepilex pt face SHAVED. all new linens mouthcare , lotion , on monitor , cardizem gtt stuill off
[2023-12-31] MEDS ORDERED: POTASSIUM CHLORIDE 20MEQ 100 ML IV SCH (06:55)
--- NOTE | 2023-12-31 08:23 | NUR ---
BEDSIDE REPORT RECEIVED FROM OFF GOING NURSE. PATIENT IS AWAKE IN BED AT THIS TIME. PATIENT IS NONVERBAL AT THIS TIME, RESPIRATIONS EVEN AND UNLABORED ON ROOM AIR. NO SIGNS OF DISTRESS NOTED. PATIENT DEPENDENT FOR CARE. MORAES CATHETER DRAINING CLEAR YELOW URINE AT THIS TIME. SAFETY MEASURES IN PLACE. NEEDS ANTICIPATED.
--- NOTE | 2023-12-31 09:51 | NUR ---
PATIENT SEEN BY DR. MONTE. NO NEW ORDERS RECEIVED. NO SIGNS OF DISTRESS NOTED AT THIS TIME. NEEDS ANTICIPATED BY STAFF.
--- NOTE | 2023-12-31 11:45 | NUR ---
PATIENT AWAKE IN BED AT THIS TIME. PATIENT ALERT AND CONTINUES TO BE NONVERBAL. NO SIGNS OF DISTRESS NOTED. RESPIRATIONS EVEN AND UNLABORED ON ROOM AIR. NON-PRODUCTIVE COUGH NOTED. SAFETY MEASURES IN PLACE. NEEDS ANTICIPATED.
--- NOTE | 2023-12-31 17:20 | NUR ---
PATIENT AWAKE AT THIS TIME. REPOSITIONED AND ASSISTED FOR SUPPER. RESPIRATIONS EVEN AND UNLABORED ON ROOM AIR. NO SIGNS OF DISTRESS NOTED. CHECKED FOR INCONTINENT EPISODE. MORAES CATHETER CONTINUES DRAINING CLEAR YELLOW URINE. SAFETY MEASURES IN PLACE. NEEDS ANTICIPATED.
--- NOTE | 2023-12-31 18:48 | NUR ---
PATIENT HAD A BOWEL MOVEMENT. BED BATH AND LINEN CHANGE PERFORMED. NO SIGNS OF DISTRESS NOTED. SAFETY MEASURES IN PLACE. CALL LIGHT WITHIN REACH.
--- NOTE | 2023-12-31 20:45 | NUR ---
pt assesssed and turned , afib on the monitors all eeds met thicket water given to drink and applesauce meds. clean no BM da silva care done , da silva draianing no dependent loops , leg strap on , all monitors on , call beel close by , frequient checks siince advanced dementia and pt cannot mentally use callbell.
--- NOTE | 2023-12-31 22:40 | NUR ---
finished cleaning pt for BM loose , liquid, brown , pt swollows med in applesauce ok but has issues with necktar thickedned water , even adding more to parker it like honey will pass on in am to possibly get speech to come again and revavluate . pt coughs after drinking the mixture . 2 nghts in a row. pt turned , medicated . face wahsed bottom washed groin, nystatin and baby powder appled to groin will ask in am to get thicker barrier cream more ystatin from pharmacy . NEW MEPILEX to buttocks.
[2024-01-01] VITALS (12 sets, daily range): BP systolic 111–160; BP diastolic 63–114
--- NOTE | 2024-01-01 | NUR ---
pt turned , no distress pt sleeping , avinash carrizales , all monitors on , no chane in assessment.
--- NOTE | 2024-01-01 02:00 | NUR ---
heels elevated on a pillow in fowlers turned , sleeping comfortbaly. all monitors on , all safety measures in place. assessment unchanged .
--- NOTE | 2024-01-01 04:00 | NUR ---
pt turned to right assessment unchanged. all monitors on , afib, da silva draiang labs being drawn by vp lab. all safety measures in place
[2024-01-01 05:10] LABS: ALBUMIN 2.5 g/dL (3.2-5.0); BILIRUBIN, TOTAL 0.5 mg/dL (0.2-1.3); CREATININE 0.8 mg/dL (0.7-1.3); MAGNESIUM 2.1 mg/dL (1.6-2.3); POTASSIUM 3.4 mmol/l (3.5-5.1); TOTAL PROTEIN 5.3 g/dL (6.3-8.2)
[2024-01-01 05:22] LABS: BASO% 0.1 % (0-3); EOS% 2.2 % (0-8); HEMATOCRIT 43.7 % (39.0-50.0); HEMOGLOBIN 14.4 g/dl (14.0-18.0); IMMATURE GRANULOCYTES 0.9 % (0.0-5.0); LYMPH% 6.2 % (15-41); MEAN CELL VOLUME 101.6 fL CALC (80.0-100.0); MEAN CORPUSCULAR HGB 33.5 pG CALC (26.0-32.0); NEUT# 11.11 thou/uL (1.82-7.42); NEUT% 85.6 % (42-76); RED BLOOD COUNT 4.3 mill/uL (4.70-6.10); RED CELL DISTRI WIDTH 14.7 % (11.5-15.5)
[2024-01-01] MEDS ORDERED: SODIUM CHLORIDE 0.9% 500 ML IV SCH (05:50)
[2024-01-01] MEDS ORDERED: SODIUM CHLORIDE 0.9% 1,000 ML IV PRN (05:55)
[2024-01-01] MEDS ORDERED: LACTATED RINGER'S 1,000 ML IV PRN (05:55)
--- NOTE | 2024-01-01 06:27 | NUR ---
hung new order of LR IVF at 100cc/hr / gave hydralazine for SBP >= 160/111
--- NOTE | 2024-01-01 06:43 | NUR ---
spoke to DR. Baeza on the phone about pt seeme to be spirating when drinking nectar thickened liquid, pt has a rattle in throat , attemptd to suctions troat with ramon and did not get much , MD aware of this , also made MD aware of BP 160/11 this am and hydralazine given for that, statred LR fluid order at 100cc/ hr per MD order. for NA. reviewed I and O with MD. stated he will have speech see pt again today .
--- NOTE | 2024-01-01 08:49 | NUR ---
patient in bed; awake; room air; breathing unlabored and even; patient not verbal but will look at you as you speak to him; tele leads are attached with no issue; midline in left arm clean and intact NS running @100, verbal order from Dr. Baeza to O NS; no s/s of distress at this time; patient has a radle in breeathing; repostioned patient on right side with pillows under him; patient had a bowel movement; da silva bag is working with no issues; medication reviwed; glucose is 187, 1 unit given; call; asssited patient with eating breakfast with no issues or any signs of aspiration when eating; informed Dr. Baeza; bilateral arms are swollen;elvated bilateral arms with pillows; call light within reach,personal items within reach, bed in lowest postion
--- NOTE | 2024-01-01 10:15 | NUR ---
PATIENT RESTING IN BED; ROOM AIR; BREATHING UNLABORED AND EVEN; NO S/S OF DISTRESS; IV SITE CLEAN AND INATCT RUNNING WITH NS @ KVO; TELE LEAS ARE ATTACHED AND WORKING WITH NO ISSUES; MEDICATION REVIEWED; MORAES BAG WORKING WITH NO ISSUES; CALL LIGHT WITHIN REACH,BED IN LOWEST POSTION; PERSONAL ITEMS WITHIN REACH
[2024-01-01] MEDS ORDERED: CORDARONE/200 MG/TAB PO (10:42)
[2024-01-01] MEDS ORDERED: CARDIZEM CD240 MG PO (10:43)
[2024-01-01] MEDS ORDERED: ATIVAN1 M1 PO (10:49)
--- NOTE | 2024-01-01 12:06 | NUR ---
PATIENT SITTING SEMI MILLER IN BED EATING LUNCH WITH VENEER DEPARTMENT MANAGER; ROOM AIR; BREATHING UNLABORED AND EVEN;UNABLE TO VERBAIZE ANY RESPONSE; TELE LEADS ARE ATTACHED AND WORKING WITH NO ISSUES; EATING LUNCH WITH NO ISSUES; IV SITE CLEAN AND INTACT RUNNING WITH NS @KVO; ELVATED BILATERAL AMS; MORAES WORKING WITH NO ISSUES; 600 OUTPUT WITH CLEAR YELLOW URINE; CALL LIGHT WITHIN REACH, PERSONAL ITEMS WITHIN REACH, BED IN LOWEST POSTION
--- NOTE | 2024-01-01 14:00 | NUR ---
PATIENT RESTING IN BED; VITALS STABLE; IV SITE CLEAN AND INTACT RUNNING WITH NS @100; TELE LEADS ARE ATTACHED AND WORKING; ROOM AIR; VBREATHIG UNLABORED AND EVEN; BILATERL ARMS ELAVTED WITH NO ISSUES; MOREAS WORKING WITH NO ISSUES
--- NOTE | 2024-01-01 14:26 | NUR ---
Discharge instructions given. Patient verbalizes understanding of same. Discharged in stable condition via Ambulatory to Home with *Other. All belongings sent with pt. RN DEACCESING PORT
--- NOTE | 2024-01-01 15:26 | NUR ---
[facility]ED [facility] AND GAVE REPORT TO AUGUST
--- NOTE | 2024-01-01 16:00 | NUR ---
IV site discontinued, cath intact. No edema , no redness, voices no discomfort. Discharge instructions given. Patient verbalizes understanding of same. Discharged in stable condition via Wheelchair to [facility] with staff. All belongings sent with pt.
--- NOTE | 2024-01-01 16:49 | NUR ---
CALLED [employer] AT SPOKE TO RAMANA WAS GIVEN CONFIRMATION NUMBER [id number].
== END 2024-01-01 16:15 | DRG 177 ==
LOC: ED 13:56 → ED-I 14:06 → ED 14:06 → MS2 16:18 → ICU 17:17
PROVIDERS: Family Medicine; Nurse Practitioner Family; Student in an Organized Health Care Education/Training Program; ADMIT Internal Medicine; ATTEND Internal Medicine
PROC: 0T9B70Z Drainage of Bladder with Drainage Device, Via Natural or Artificial Opening (ICD-10-PCS; principal; 2023-12-24)
DX: U07.1 COVID-19 (principal); G92.8 Other toxic encephalopathy; J12.82 Pneumonia due to coronavirus disease 2019; J15.9 Unspecified bacterial pneumonia; B19.10 Unspecified viral hepatitis B without hepatic coma; G12.29 Other motor neuron disease; G20.A1 Parkinson's disease without dyskinesia, without mention of fluctuations; G31.83 Neurocognitive disorder with Lewy bodies; F02.C0 Dementia in other diseases classified elsewhere, severe, without behavioral disturbance, psychotic disturbance, mood disturbance, and anxiety; I10 Essential (primary) hypertension; E11.51 Type 2 diabetes mellitus with diabetic peripheral angiopathy without gangrene; E78.5 Hyperlipidemia, unspecified; I48.91 Unspecified atrial fibrillation; I25.10 Atherosclerotic heart disease of native coronary artery without angina pectoris; I25.2 Old myocardial infarction; G47.33 Obstructive sleep apnea (adult) (pediatric); Z79.84 Long term (current) use of oral hypoglycemic drugs; Z86.73 Personal history of transient ischemic attack (TIA), and cerebral infarction without residual deficits; Z86.14 Personal history of Methicillin resistant Staphylococcus aureus infection; Z96.652 Presence of left artificial knee joint; Z96.641 Presence of right artificial hip joint; Z66 Do not resuscitate; Z74.01 Bed confinement status
CPT/HCPCS: J0282; J1650; J2060